=== PATIENT | female | born 1985 | race Caucasian/White ===

== ENCOUNTER 2017-01-16 13:20 | Emergency (ER) ==
[2017-01-16 14:13] VITALS: BP 102/55
== END 2017-01-16 16:45 | disposition left against medical advice (07) ==
LOC: UCEAST 13:20
DX: M79.604 Pain in right leg (principal); Z53.21 Procedure and treatment not carried out due to patient leaving prior to being seen by health care provider

== ENCOUNTER 2019-04-05 05:26 | Day surgery (SDC) | payer BC ==
[~2019-04-05 05:26] MED LIST: Buffered Lidocaine 1% SYRIN* 1 ML/SYRINGE INTRADERM ONE
[2019-04-05] MEDS ORDERED: Lactated Ringers 1000 ML Bag* 1,000 ML IV SCH (06:00)
[2019-04-05] MEDS ORDERED: Dexamethasone TAB* 4 MG PO ONE (06:00)
[2019-04-05] MEDS ORDERED: Ondansetron ODT TAB* 4 MG PO ONE (06:00)
[2019-04-05] MEDS ORDERED: Famotidine IV* 10 MG/ML 2 ML (20 mg) IV ONE (06:00)
[2019-04-05] MEDS ORDERED: Buffered Lidocaine 1% SYRIN* 1 ML/SYRINGE INTRADERM ONE (06:06)
[2019-04-05] MEDS ORDERED: Ondansetron ODT TAB* 4 MG ONE (06:06)
[2019-04-05] MEDS ORDERED: Dexamethasone TAB* 4 MG ONE (06:06)
[2019-04-05] MEDS ORDERED: Famotidine IV* 10 MG/ML 2 ML (20 mg) ONE (06:06)
[2019-04-05 06:53] LABS: Hematocrit 40 % (35-47); Hemoglobin 13.7 g/dL (12.0-16.0); Mean Corpuscular HGB Conc 34 g/dL (31-36); Mean Corpuscular Hemoglobin 32 pg (27-31); Mean Corpuscular Volume 92 fL (80-97); Mean Platelet Volume 9.1 fL (7.4-10.4); Platelet Count 294 10^3/uL (150-450); Red Blood Count 4.34 10^6 /uL (3.70-4.87); Red Cell Distribution Width 13 % (10-15); White Blood Count 7.4 10^3/uL (3.5-10.8)
[2019-04-05] MEDS ORDERED: fentaNYL* 50 MCG/ML 2 ML VIAL (100 MCG VIAL) IV PRN (07:02)
[2019-04-05] MEDS ORDERED: PROCHLORPERAZINE INJ 5 MG/ML 2 ML VIAL IV PRN (07:02)
[2019-04-05] MEDS ORDERED: DiMENhydriNATE IV* 50 MG/ML VIAL IV PUSH PRN (07:02)
[2019-04-05] MEDS ORDERED: HYDROmorphone INJ1* 1 MG/ML SYRINGE IV PRN (07:02)
[2019-04-05] MEDS ORDERED: Naloxone* 0.4 MG/ML 1 ML VIAL IV PRN (07:02)
[2019-04-05] MEDS ORDERED: Scopolamine 1.5 mg* PATCH TRANSDERM PRN (07:02)
[2019-04-05] MEDS ORDERED: oxyCODONE TAB* 5 MG TAB PO PRN (07:02)
[2019-04-05] MEDS ORDERED: fentaNYL* 50 MCG/ML 2 ML VIAL (100 MCG VIAL) ONE (07:13)
[2019-04-05] MEDS ORDERED: Midazolam* 1 MG/ML 5 ML VIAL (5 MG) ONE (07:13)
[2019-04-05] MEDS ORDERED: Silver Nitrate/Potassium Nitr* 1 PAK (1 PAK PER PATIENT) ONE (08:28)
[2019-04-05] MEDS ORDERED: Lidocaine 2% PF * 5 ML VIAL ONE (08:59)
[2019-04-05] MEDS ORDERED: Acetaminophen IV 1GM/100ML * 100 ML ONE (08:59)
[2019-04-05] MEDS ORDERED: Ketorolac INJ* 30 MG/ML 1 ML VIAL ONE (08:59)
[2019-04-05] MEDS ORDERED: Propofol* 10 MG/ML 20 ML BTL ONE (08:59)
[2019-04-05] MEDS ORDERED: oxyCODONE TAB* 5 MG TAB ONE (09:59)
[2019-04-05 10:04] VITALS: BP 118/76
--- NOTE | 2019-04-05 18:13 | OP ---
OPERATIVE REPORT: DATE OF OPERATION: 04/05/19 - [facility] DATE OF : 87 SURGEON: Roseanne Harmon MD ANESTHESIOLOGIST: Dr. Taylor. ANESTHESIA: General. PRE-OP DIAGNOSIS: Menorrhagia. POST-OP DIAGNOSIS: Menorrhagia. OPERATIVE PROCEDURE: Dilation and curettage and endometrial ablation with NovaSure. ESTIMATED BLOOD LOSS: Minimal. URINE OUTPUT: 150 cc. IV FLUIDS: 1200 cc lactated Ringer's. MATERIALS TO LAB: Endometrial curettings. INDICATIONS: This patient is a 34-year-old 5, para 4, who has had persistent heavy bleeding despite oral contraceptives. After extensive discussion regarding her options, she desired to proceed with an endometrial ablation. She was extensively counseled and consent was signed. An endometrial biopsy in the office returned with benign endometrium. Ultrasound was also unremarkable. FINDINGS: Scant amount of endometrium on curettage. COMPLICATIONS: None. DESCRIPTION OF PROCEDURE: The risks, benefits, and alternatives were described to the patient and informed consent was obtained. The patient was taken to the operating room with IV running, where general anesthesia was induced and found to be adequate. The patient was prepped and draped in the normal sterile fashion in a [facility]. A time-out was performed. The bladder was emptied. A bimanual examination was performed under anesthesia. A bivalve speculum was placed in the vagina and a single-tooth tenaculum was placed on the anterior cervix. The uterus was then sounded to about 8 cm. The cervical length was measured at about 3.5 cm. The cervix was then gently dilated using Hanks dilators to about a size 24. At that time, a small banjo curette was placed into the uterine cavity and a curettage was performed of the entire cavity. Only a small amount of tissue was collected and this was collected on Telfa. The NovaSure device was then prepared and placed through the cervix, then into the uterine cavity. Cavity length was measured at 4.5, cavity width 4.4 cm. After a negative cavity assessment, the ablation was started. It lasted 1 minute 24 seconds at a power of 109. The device was then removed. The tenaculum was removed from the cervix and bleeding from the tenaculum sites was controlled with applying pressure and then some silver nitrate. The patient was then returned to the supine position. The patient tolerated the procedure well. Sponge, lap, and needle counts were correct x2. [id number] #: [id number] MTDD
[2019-04-08] MEDS ORDERED: Scopolamine PATCH Remove* 1 NOTE MISC PATCH OFF ONE (07:03)
== END 2019-04-05 11:30 | disposition home or self-care (01) ==
LOC: OR 05:26
PROVIDERS: ATTEND Obstetrics & Gynecology
DX: N92.0 Excessive and frequent menstruation with regular cycle (principal)
CPT/HCPCS: 36415; 81025; 85027; 88305; A9270-GY; J1885; J2250; J2704; J3010; J8540